=== PATIENT | male | born 1945 | race American Indian/Alaskan Native ===

== ENCOUNTER 2020-05-16 07:57 | Day surgery (SDC) | payer MEDICARE, OTHER ==
--- NOTE | 2020-05-16 09:04 | Anesthesia Day of Surgery ---
Anesthesia Day of Surgery - Day of Surgery Patient Examined: Yes Patient H&P Reviewed: Yes Patient is NPO: Yes
--- NOTE | 2020-05-16 09:05 | Anesthesia Consultation ---
Anesthesia Consult and Med Hx Date of service: 05/16/20 - Airway Anesthetic Teeth Evaluation: Crowns (temporary) ROM Head & Neck: Adequate Mental/Hyoid Distance: Adequate Mallampati Class: Class II Intubation Access Assessment: Good - Pre-Operative Health Status ASA Pre-Surgery Classification: ASA2 Proposed Anesthetic Plan: MAC - Pulmonary Hx Asthma: No (+2FS) - Cardiovascular System Hx Hypertension: Yes - Endocrine Hx Liver Disease: Yes (Hep C)
[2020-05-16] MEDS ORDERED: propofoL 200 MG/20 ML VIAL IV ONE ×2 (09:29)
[2020-05-16] MEDS ORDERED: LIDOCAINE MPF (2%) 20 MG/1 ML VIAL 5 ML ONE (09:30)
--- NOTE | 2020-05-16 09:52 | Short Stay Summary ---
Short Stay Documentation Date of service: 05/16/20 Narrative H&P: The patient reports for surveillance colonoscopy. His last study was 6 years ago at which time he had an adenomatous polyp. - History Past Medical History: hepatitis, hypertension Past Surgical History: No surgical history Social history: no significant social history, , lives with family - Allergies and Medications Current Medications: Allergies No Known Allergies Allergy (Verified 11/22/13 06:44) Home Medications Medication Instructions Recorded Confirmed Last Taken Type Ibuprofen [Motrin] 400 mg PO TID PRN #60 tablet 11/22/13 05/16/20 04/05/20 Rx 400 mg Oxycodone HCl/Acetaminophen 1 each PO Q6HR PRN #20 tablet 11/22/13 05/16/20 04/29/20 Rx [Percocet 10-325 mg] 1 tab amLODIPine 5 mg PO DAILY 05/16/20 05/16/20 05/16/20 05:00 History 5 mg - Physical exam General appearance: no acute distress, well-nourished Integumentary: no growths, no abnormal pigmentation HEENT: Atraumatic, PERRLA, EOMI, Mucous membr. moist/pink Lungs: Clear to auscultation, Normal air movement Breasts: deferred Heart: Regular rate, Normal S1, Normal S2, No murmurs Gastrointestinal: normoactive bowel sounds, no tenderness, no distended, no masses, no guarding, no organomegaly Male Genitourinary: deferred Rectal Exam: normal exam-external/orifice, normal rectal tone, no mass Extremities: no ischemia, pulses intact, pulses symmetrical, No edema, normal temperature, normal color, Full ROM Neurological: Normal gait, Normal speech, Strength at 5/5 X4 ext, Normal tone, Sensation intact, Cranial nerves 3-12 NL - Brief post op/procedure progress note Date of procedure: 05/16/20 Findings: see dictation Estimated blood loss: none Pathology: none Condition: stable - Disposition Condition at discharge: Good Disposition: -01 TO HOME OR SELFCARE - Discharge Diagnoses (1) History of colon polyps Status: Acute Short Stay Discharge Plan Activity: other (no driving for 24 hours) Weight Bearing Status: Full Weight Bearing Diet: regular Follow up with: PRIMARY CARE, [Primary Care Provider] - 7 Days
--- NOTE | 2020-05-16 09:54 | Operative Report ---
Operative Report Operative Report: Date of procedure: 05/16/2020 Preprocedure diagnosis: History of colon polyps. Last study 6 years ago at [facility] time a tubular adenoma was present. Post procedure diagnosis: Left colon diverticulosis, no recurrent polyps. Procedure: Colonoscopy to the cecum Endoscopist: Dr. Alvarado Anesthesia: Monitored anesthesia care per anesthesia department Estimated blood loss: 0 Medications: Monitored anesthesia care. See separate report by anesthesia for details. After careful discussion of the nature and purpose of the procedure as well as details of the technique risks benefits and alternatives the patient gave consent. Please see recent history and physical from the office. The patient was placed in the left lateral decubitus position and medicated per anesthesia. A rectal exam was performed sphincter tone was normal there were no masses palpable. The [employer] 570 scope was passed transanally and advanced under continuous direct vision without difficulty to the cecum. The colon was well prepared. The cecum was normal. The ascending colon was normal and on forward and retroflexed views. The transverse colon was normal. There were scattered diverticula in the descending and sigmoid colon. The rectum was normal on forward and retroflexed views. The procedure was well-tolerated overall and the patient was observed in recovery. Conclusions: Left colon diverticulosis, no recurrent polyps. Plan: Repeat colonoscopy in 5 years. Signed electronically: Klaus Alvarado M.D.
--- NOTE | 2020-05-16 10:19 | Post Anesthesia Evaluation ---
- Post Anesthesia Evaluation Patient Participated: Yes Airway Patent: Yes Stable Respiratory Function: Yes Nausea/Vomiting: No Temp > 96.8F: Yes Pain Manageable: Yes Adequeate Hydration: Yes Anesthesia Complications: No Block Receding Appropriately: Not Applicable Patient on Ventilator: No
[2020-05-16 11:06] VITALS: BP 143/75
== END 2020-05-16 07:58 | disposition home or self-care (01) ==
LOC: GIO 07:57
PROVIDERS: ATTEND Internal Medicine Gastroenterology
DX: Z12.11 Encounter for screening for malignant neoplasm of colon (principal); K57.30 Diverticulosis of large intestine without perforation or abscess without bleeding; I10 Essential (primary) hypertension; J45.909 Unspecified asthma, uncomplicated; Z87.891 Personal history of nicotine dependence; Z79.899 Other long term (current) drug therapy; Z86.010 Personal history of colon polyps; Z98.890 Other specified postprocedural states; Z86.2 Personal history of diseases of the blood and blood-forming organs and certain disorders involving the immune mechanism
CPT/HCPCS: 45378; J2704